=== PATIENT | male | born 1995 ===

== ENCOUNTER 2024-09-08 08:00 | Day surgery (SDC) | payer OTHER ==
[2024-08-31 13:02] LABS: PH,URINE 6.5 (5.0-8.0); URINE APPEARANCE Clear; URINE BILIRRUBIN Negative (NEGATIVE); URINE BLOOD Negative; URINE COLOR Yellow; URINE GLUCOSE Negative (NEGATIVE); URINE KETONE Negative (NEGATIVE); URINE LEUKOCYTE Negative; URINE NITRATE Negative; URINE PROTEIN Negative (NEGATIVE); URINE UROBILINOGEN 0.2 E.U./dl
[2024-08-31 13:03] LABS: HEMATOCRIT 43.6 % (39.0-48.0); HEMOGLOBIN 14.4 g/dL (13-16.00); MEAN CORPUSCULAR HEMOGLOBIN 26.8 pg (27.00-32.0); MEAN CORPUSCULAR HGB CONC 33.1 g/dl (32.0-36.0); PLATELET COUNT 224 K/uL (150-450); RED BLOOD COUNT 5.39 M/uL (4.00-6.00); RED CELL DISTRIBUTION WIDTH 13.9 % (11.5-14.5)
[2024-08-31 13:06] VITALS: BP 122/78
[2024-08-31 13:06] LABS: URINE RBC 2.5 uL (0.0-20.8)
[2024-08-31 13:14] LABS: URINE BACTERIA 1.2 uL (0.0-1933); URINE WBC 0.3 uL (0.0-23.2)
[2024-08-31 13:16] LABS: PARTIAL THROMBOPLASTIN TIME 26.6 SECONDS (22.0-34.0); PROTHROMBIN TIME 10.9 SECONDS (9.0-11.5)
[2024-08-31 13:58] LABS: ALBUMIN 3.9 gm/dL (3.4-5.0); CALCIUM 9.1 mg/dL (8.5-10.1); CREATININE SERUM 0.86 mg/dL (0.70-1.30); GFR 106.67; PHOSPHOROUS 3.2 mg/dL (2.5-4.9); POTASSIUM 4.47 mEq/L (3.5-5.1)
[~2024-09-08] VITALS: Ht 175.3 cm; Wt 104.3 kg
[2024-09-08] MEDS ORDERED: CEFAZOLIN SODIUM 1,000 MG VIAL ONE ×2 (08:57→09:41)
[2024-09-08] MEDS ORDERED: POVIDONE-IODINE 118 ML BOTT TOP ONE (09:41)
[2024-09-08] MEDS ORDERED: EPINEPHRINE HCL/PF 1 MG/ML AMPUL ONE (09:41)
[2024-09-08] MEDS ORDERED: CIPROFLOXACIN HCL 0.175 MG/DR DROPS OP ONE (11:30)
[2024-09-08] MEDS ORDERED: CIPROFLOXACIN2.5 ML OTIC (11:48)
[2024-09-08] MEDS ORDERED: CEPHALEXIN500 M1 PO (11:48)
[2024-09-08] MEDS ORDERED: MORPHINE SULFATE 4 MG/ML VIAL IV ONE ×2 (12:50→13:20)
== END 2024-09-08 14:45 | disposition home or self-care (01) ==
LOC: CIR.AMB 08:00
PROVIDERS: ATTEND Otolaryngology Otology & Neurotology
DX: H72.91 Unspecified perforation of tympanic membrane, right ear (principal); H70.11 Chronic mastoiditis, right ear; H90.A11 Conductive hearing loss, unilateral, right ear with restricted hearing on the contralateral side; I10 Essential (primary) hypertension